=== PATIENT | female | born 1990 | race African-American/Black ===

== ENCOUNTER 2018-07-31 19:58 | Emergency (ER) | payer OTHER ==
[2018-07-31] MEDS ORDERED: ALBUTEROL SO4 2.5/IPRATROPIUM 0.5 INH SOL 3 ML VIAL.NEB. NEB ONE ×4 (20:04→22:44)
--- NOTE | 2018-07-31 20:04 | PDOC ---
Rapid Medical Evaluation Time Seen by Provider: 07/31/18 20:00 Medical Evaluation: 07/31/18 20:00 I have performed a brief in-person evaluation of this patient. The patient presents with a chief complaint of: SOB since this morning, no hx of asthma. Cough x today, congestion x 2 days. chest pain earlier, now resolved. patient reports taking multiple doses of dayquil today. denies recent travel, surgeries, OCPs/hormonal use. Pertinent physical exam findings: tach to 135, O2 94%, exp wheeze to RUL. nasal congestion. I have ordered the following: duoneb, cxr The patient will proceed to the ED for further evaluation.
[2018-07-31 20:06] VITALS: BMI 32.5
--- NOTE | 2018-07-31 20:16 | PDOC ---
History of Present Illness - General Chief Complaint: Shortness of Breath Stated Complaint: SOB Time Seen by Provider: 07/31/18 20:00 History Source: Patient Exam Limitations: No Limitations - History of Present Illness Initial Comments: 07/31/18 21:33 27 year old female with no PMH presented to ED for SOB since yesterday associated with nasal congestion, productive yellow cough, pleuritic substernal chest pain. Pt stated her symptoms are constant, progressing, no alleviating or aggravating factors. Pt took 3 doses of Dayquil today without relief of symptoms. Dayquil has 325 mg of Tylenol. Allergies: NKDA Past History - Past Medical History Allergies/Adverse Reactions: Allergies Allergy/AdvReac Type Severity Reaction Status Date / Time cat dander Allergy Mild Itching Verified 07/31/18 20:06 Home Medications: Ambulatory Orders Albuterol Sulfate Inhaler - [Ventolin HFA Inhaler -] 1 - 2 inh PO Q4H #1 inhaler 08/01/18 Albuterol Sulfate Inhaler - [Ventolin HFA Inhaler -] 2 inh PO Q4H PRN #1 inh Azithromycin [Zithromax 250mg Tablets -] 250 mg PO DAILY #4 tab 08/01/18 Azithromycin [Zithromax 250mg Tablets -] 250 mg PO UTDICT #4 tab 08/01/18 COPD: No - Suicide/Smoking/Psychosocial Hx Smoking History: Never smoked Have you smoked in the past 12 months: No Information on smoking cessation initiated: No Hx Alcohol Use: No Drug/Substance Use Hx: No Review of Systems - Review of Systems Able to Perform ROS?: Yes Comments:: 07/31/18 20:37 General: denied fever, chills, generalized weakness. HEENT: denied sore throat, rhinorrhea, ear pain. Heart:admitted to chest pain. denied palpitations, syncope, diaphoresis. Respiratory: admitted to shortness of breath, cough, sputum production. denied hemoptysis. Abdomen: denied abdominal pain, nausea, vomiting, diarrhea, constipation, blood in stool. : denied dysuria, increased urinary frequency, hematuria, urinary incontinence , flank pain. Back: denied back pain. Musculoskeletal: denied joint pain, muscle pain, joint swelling. Neurological: denied headache, dizziness, numbness, tingling, weakness. Skin: denied rash, laceration, abrasion. *Physical Exam - Vital Signs Last Vital Signs Temp Pulse Resp BP Pulse Ox 98.4 F 125 H 18 146/76 97 07/31/18 20:03 07/31/18 20:03 07/31/18 20:03 07/31/18 20:03 07/31/18 20:03 - Physical Exam Comments: 07/31/18 20:38 Constitutional: Well-nourished, Well-developed, appearing stated age. HEENT: head is normocephalic, atraumatic. EOMI. PERRLA. Neck: supple. Full ROM. Heart: tachycardic. regular rhythm. no murmurs, rubs or gallops. Lungs: right upper anterior wheezing, left posterior wheezing. no crackles. no stridor. speaking full sentences. Abdomen: soft, nontender. normal bowel sounds. no rebound, guarding, masses. Extremities: peripheral pulses intact. no lower extremity edema. Neurological: CN 2-12 grossly intact. moves all four extremities. Psych: awake, alert, oriented x3. follows commands. answers questions appropriately. ED Treatment Course - LABORATORY CBC & Chemistry Diagram: 07/31/18 20:29 07/31/18 20:29 Medical Decision Making - Medical Decision Making 07/31/18 20:38 27 year old female with no PMH presented to ED for SOB since yesterday associated with nasal congestion, productive yellow cough, pleuritic substernal chest pain. Initial Vital Signs Temp Pulse Resp BP Pulse Ox 98.4 F 125 H 18 146/76 97 07/31/18 20:03 07/31/18 20:03 07/31/18 20:03 07/31/18 20:03 07/31/18 20:03 Afebrile. Tachycardic. No tachypnea. Mild hypertension. No hypoxia on room air. EKG performed at 2002: rate 114, normal axis, normal intervals, regular rhythm, no ST changes, no right heart strain. Labs ordered:CBC, CMP Imaging ordered: CXR Medications ordered: normal saline bolus 1000 cc, duonebx3 07/31/18 21:05 CBC WBC 17.4 K/mm3 (4.0-10.0) H 07/31/18 20:29 RBC 4.14 M/mm3 (3.60-5.2) 07/31/18 20:29 Hgb 12.0 GM/dL (10.7-15.3) 07/31/18 20: Hct 38.1 % (32.4-45.2) 07/31/18 20: MCV 92.0 fl (80-96) 07/31/18 20: MCH 28.9 pg (25.7-33.7) 07/31/18 20: MCHC 31.5 g/dl (32.0-36.0) L 07/31/18 20: RDW 12.9 % (11.6-15.6) 07/31/18 20: Plt Count 276 K/MM3 (134-434) 07/31/18 20: MPV 10.5 fl (7.5-11.1) 07/31/18 20: Absolute Neuts (auto) 15.2 K/mm3 (1.5-8.0) H 07/31/18 20: Neutrophils % 87.1 % (42.8-82.8) H 07/31/18 20: Lymphocytes % 6.3 % (8-40) L 07/31/18 20: Monocytes % 4.9 % (3.8-10.2) 07/31/18 20: Eosinophils % 1.6 % (0-4.5) 07/31/18: Basophils % 0.1 % (0-2.0) 07/31/18 20: Nucleated RBC % 0 % (0-0) 07/31/18 20: Leukocytosis with left shift. No anemia. 07/31/18 21:35 CMP Sodium 141 mmol/L (136-145) 07/31/18 20: Potassium 4.0 mmol/L (3.5-5.1) 07/31/18 20: Chloride 106 mmol/L (98-107) 07/31/18 20: Carbon Dioxide 28 mmol/L (21-32) 07/31/18 20: Anion Gap 7 MMOL/L (8-16) L 07/31/18 20:29 BUN 7 mg/dL (7-18) 07/31/18 20: Creatinine 0.8 mg/dL (0.55-1.3) 07/31/18 20:29 Est GFR (CKD-EPI)AfAm 115.47 07/31/18 20:29 Est GFR (CKD-EPI)NonAf 99.63 07/31/18 20:29 Random Glucose 93 mg/dL (74-106) 07/31/18 20:29 Calcium 9.1 mg/dL (8.5-10.1) 07/31/18 20:29 Total Bilirubin 0.5 mg/dL (0.2-1) 07/31/18 20:29 AST 17 U/L (15-37) 07/31/18 20:29 ALT 16 U/L (13-61) 07/31/18 20:29 Alkaline Phosphatase 89 U/L (45-117) 07/31/18 20:29 Total Protein 8.3 g/dl (6.4-8.2) H 07/31/18 20:29 Albumin 3.7 g/dl (3.4-5.0) 07/31/18 20:29 No electrolyte abnormalities. No ROKCY. No transaminitis. Vital Signs Temperature 101 F H 07/31/18 21:32 Pulse Rate 112 H 07/31/18 21:32 Respiratory Rate 20 07/31/18 21:32 Blood Pressure 114/64 07/31/18 21:32 O2 Sat by Pulse Oximetry (%) 99 07/31/18 21:32 Pt is rectally febrile. Tachycardia improving with fluid bolus. Medications ordered: Tylenol IV CXR my read: sharp costophrenic angles. no infiltrate. no cardiomegaly. no large pneumothorax. -Pending official read 07/31/18 23:17 INR, PTT INR 1.17 (0.83-1.09) H 07/31/18 20:29 D-dimer 535 Results discussed with patient and mother, they stated they will decide on the CTA. 08/01/18 00:05 Pt and mother decided to do CTA. Serum testing negative. 08/01/18 01:31 CTA negative for PE. 6.3 subpleural nodule. left lobe of thyroid larger than right. Pt informed of result and need for follow up with PCP on nodule and thyroid. Pt and mother expressed understanding. Vital Signs Temperature 98.1 F 08/01/18 01:45 Pulse Rate 100 H 08/01/18 02:03 Respiratory Rate 20 08/01/18 01:45 Blood Pressure 123/73 08/01/18 01:45 O2 Sat by Pulse Oximetry (%) 98 08/01/18 01:45 Febrile. Tachycardia improved. No hypotension. No hypoxia on room air. Pt discharged. 08/01/18 20:44 Follow up: Official CXR report: There are no prior studies for comparison. 2 views of the chest reveal clear lungs, normal mediastinum and sharp angles. The bones and soft tissues are intact. Impression: No acute chest pathology. This symptoms persist, then further imaging with CT may be of help. *DC/Admit/Observation/Transfer Diagnosis at time of Disposition: Shortness of breath, Viral syndrome, Leukocytosis - Discharge Dispostion Condition at time of disposition: Improved Decision to Admit order: No - Prescriptions Prescriptions: Albuterol Sulfate Inhaler - [Ventolin HFA Inhaler -] 2 inh PO Q4H PRN #1 inh PRN Reason: Cough Albuterol Sulfate Inhaler - [Ventolin HFA Inhaler -] 1 - 2 inh PO Q4H #1 inhaler Azithromycin [Zithromax 250mg Tablets -] 250 mg PO DAILY #4 tab Azithromycin [Zithromax 250mg Tablets -] 250 mg PO UTDICT #4 tab - Referrals - Patient Instructions Printed Discharge Instructions: DI for Viral Syndrome Additional Instructions: Your lab work showed an elevated white blood cell count, an indicator of infection. Your chest X-ray was normal. Your Cat-Scan was negative for a blood clot. You likely have a viral infection. Take 1000 mg Tylenol over the counter every 8 hours as needed for pain/fever. Take the azithromycin as prescribed Use the inhaler every 4 hours as needed for shortness of breath Drink lots of clear fluids, like gatorade/pedialyte, to stay hydrated. Follow up with your primary care doctor within 4 days. Your care is not complete until you follow up. Return to the Emergency Department for chest pain, shortness of breath, palpitations, fever>104F with Tylenol use, fever>5 days or any other new, worsening or concerning symptoms. - Post Discharge Activity Forms/Work/School Notes: Back to Work
[2018-07-31] MEDS ORDERED: SODIUM CHLORIDE 1,000 ML IV STA (20:17)
[2018-07-31 20:43] LABS: BASO % 0.1 % (0-2.0); EOS % 1.6 % (0-4.5); HEMATOCRIT 38.1 % (32.4-45.2); LYMPH % 6.3 % (8-40); MCH 28.9 pg (25.7-33.7); MCHC 31.5 g/dl (32.0-36.0); MEAN PLT VOLUME 10.5 fl (7.5-11.1); MONO % 4.9 % (3.8-10.2); NEUT % 87.1 % (42.8-82.8); PLATELET COUNT 276 K/MM3 (134-434); RBC 4.14 M/mm3 (3.60-5.2); RDW 12.9 % (11.6-15.6); WHITE BLOOD COUNT 17.4 K/mm3 (4.0-10.0)
[2018-07-31 21:21] LABS: ALBUMIN 3.7 g/dl (3.4-5.0); BILIRUBIN,TOTAL 0.5 mg/dL (0.2-1); CALCIUM 9.1 mg/dL (8.5-10.1); CREATININE 0.8 mg/dL (0.55-1.3); TOT PROT 8.3 g/dl (6.4-8.2)
[2018-07-31] MEDS ORDERED: ACETAMINOPHEN 1000 MG/100 ML VIAL (NON FORMULARY) IVPB ONE (21:38)
[2018-07-31] MEDS ORDERED: ACETAMINOPHEN INJECTION 100 ML IVPB ONE (21:43)
[2018-07-31 22:03] LABS: INR 1.17 (0.83-1.09); PROTHROMBIN TIME (PATIENT) 13.8 SEC (9.7-13.0)
[2018-07-31 22:05] LABS: ACTIVATED PTT 31.4 SECONDS (25.2-36.5)
--- NOTE | 2018-07-31 23:13 | PDOC ---
Documentation entered by Indra Becker SCRIBE, acting as scribe for Rob Avila MD. Rob Avila MD: This documentation has been prepared by the Rosita baez Nirvannie, SCRIBE, under my direction and personally reviewed by me in its entirety. I confirm that the documentation accurately reflects all work, treatment, procedures, and medical decision making performed by me. Attending Attestation - Resident Resident Name: ValDemetria - ED Attending Attestation I have performed the following: I have examined & evaluated the patient, The case was reviewed & discussed with the resident, I agree w/resident's findings & plan - HPI HPI: 07/31/18 21:49 The patient is a 27 year old female, with no significant past medical history, who presents to the emergency department with, 2 days of nasal congestion, cough , fever (Tmax 101F), and pleuritic pressure-like chest pain. Patient notes taking DayQuil, without relief and has multiple sick contacts. She also notes a recently getting a cat (pt is allergic to cats). Denies exogenous hormone use, no control, denies recent travel or immobility. She denies recent nausea, vomit, diarrhea or constipation. She denies recent dysuria, frequency, urgency or hematuria. Allergies: Cat dander - Physicial Exam PE: 07/31/18 21:49 GENERAL: Awake, alert, and fully oriented, in no acute distress HEAD: No signs of trauma EYES: PERRLA, EOMI, sclera anicteric, conjunctiva clear ENT: Auricles normal inspection, hearing grossly normal, nares patent, oropharynx clear without exudates. Moist mucosa NECK: Normal ROM, supple, no lymphadenopathy, JVD, or masses LUNGS: +Diffuse expiratory wheezing L>R. No crackles HEART: Tachycardic but regular, rate 110, normal S1 and S2, no murmurs, rubs or gallops ABDOMEN: Soft, nontender, normoactive bowel sounds. No guarding, no rebound. No masses EXTREMITIES: Normal range of motion, no edema. No cords, erythema, or tenderness BACK: No midline spinal tenderness in cervical/thoracic/lumbar region NEUROLOGICAL: Normal speech, cranial nerves intact, equal strength and sensation b/l SKIN: Warm, Dry, normal turgor, no rashes or lesions noted. - Medical Decision Making 07/31/18 23:11 27yo F presents to the ED with pleuritic CP, fever, chills, congestion Pt initially tachycardic with no fever Low risk for PE, so dimer was sent Dimer is mildly positive, thus will obtain CTA to r/o PE If PE neg, likely bronchitis in setting of viral syndrome Plan to treat with nebs, z-pack in ED, reassess 08/01/18 01:38 CTA negative 08/01/18 01:41 EXAM: CHEST CTA HISTORY: Rule out pulmonary embolus COMPARISON: None. FINDINGS: No definite pulmonary embolus. However, the pulmonary arteries are under opacified. Contrast density in the pulmonary arteries is 180 Hounsfield units or less. This is well short of minimal acceptable density of low 200s. There is also motion artifact degrading the images. Negative for thoracic aortic aneurysm or dissection. No pulmonary infiltrates (motion artifact is a false appearance of infiltrates in some areas). There is a 6.3 mm subpleural nodule right middle lobe. Recommend follow-up Enlarged thyroid left greater than right lobe. Shotty axillary lymph nodes. Impression: No definite pulmonary embolus. Diagnostic sensitivity is quite limited. 6.3 subpleural nodule right middle lobe. Enlarged thyroid left lobe greater than right One or more of the following dose reduction techniques were used: automated exposure control, adjustment of the mA and/or kV according to patient size, use of iterative reconstructive technique. Read by: Stanley Garza MD No PE, +nodule which was discussed with pt. She will f/u with her PMD. Report provided Pt also has asymmetric thyroid on CT scan which she states she also knows about and will f/u for Pt feeling better, no longer wheezing HR 100 Will give z-pack and albuterol inhaler Pt to f/u with her PMD within 2-3 days I discussed the physical exam findings, ancillary test results and final diagnoses with the patient. I answered all of the patient's questions. The patient was satisfied with the care received and felt comfortable with the discharge plan and treatment plan. The patient will call their primary care physician within 24 hours to arrange follow-up and will return to the Emergency Department with any new, persistent or worsening symptoms.
[2018-08-01] MEDS ORDERED: AZITHROMYCIN 250 MG TABLET PO ONE (01:37)
[2018-08-01 01:46] VITALS: BP 123/73; TEMP 98.1
[2018-08-01] MEDS ORDERED: AZITHROMYCIN 250 MG TABLET ONE (01:50)
[2018-08-01 02:04] VITALS: PULSE 100
--- NOTE | 2018-08-01 15:33 | EKG ---
Test Reason : Blood Pressure : / mmHG Vent. Rate : 114 BPM Atrial Rate : 114 BPM P-R Int : 146 ms QRS Dur : 088 ms QT Int : 322 ms P-R-T Axes : 082 070 054 degrees QTc Int : 443 ms SINUS TACHYCARDIA POSSIBLE LEFT ATRIAL ENLARGEMENT BORDERLINE ECG NO PREVIOUS ECGS AVAILABLE Confirmed by MD David, Yoni ([id number]) on 08/01/2018 3:32:53 PM Referred By: Confirmed By:Yoni Hernandez MD
== END 2018-08-01 02:03 | disposition home or self-care (01) ==
LOC: JER 19:58
PROC: 3E0F7GC Introduction of Other Therapeutic Substance into Respiratory Tract, Via Natural or Artificial Opening (ICD-10-PCS; principal; 2018-07-31)
PROC: 3E0F7GC Introduction of Other Therapeutic Substance into Respiratory Tract, Via Natural or Artificial Opening (ICD-10-PCS; 2018-07-31)
PROC: 3E0337Z Introduction of Electrolytic and Water Balance Substance into Peripheral Vein, Percutaneous Approach (ICD-10-PCS; 2018-07-31)
PROC: 3E033NZ Introduction of Analgesics, Hypnotics, Sedatives into Peripheral Vein, Percutaneous Approach (ICD-10-PCS; 2018-07-31)
DX: B34.9 Viral infection, unspecified (principal); D72.829 Elevated white blood cell count, unspecified
CPT/HCPCS: 36415; 71046-TC-FY; 71275-TC; 80053; 84703; 85025; 85379; 85610; 85730; 93005; 93010; 99283-25; J0131; J7030

== ENCOUNTER 2018-12-08 01:46 | Emergency (ER) | payer OTHER ==
--- NOTE | 2018-12-08 03:33 | PDOC ---
History of Present Illness - General Chief Complaint: Vaginal Bleeding Stated Complaint: VAGINAL BLEEDING Time Seen by Provider: 12/08/18 03:29 Past History - Past Medical History Allergies/Adverse Reactions: Allergies Allergy/AdvReac Type Severity Reaction Status Date / Time cat dander Allergy Mild Itching Verified 12/08/18 02:07 Home Medications: Ambulatory Orders Albuterol Sulfate Inhaler - [Ventolin HFA Inhaler -] 1 - 2 inh PO Q4H #1 inhaler 08/01/18 COPD: No - Immunization History Immunization Up to Date: Yes - Psycho Social/Smoking Cessation Hx Smoking History: Never smoked Have you smoked in the past 12 months: No Hx Alcohol Use: No Drug/Substance Use Hx: No *Physical Exam - Vital Signs Last Vital Signs Temp Pulse Resp BP Pulse Ox 99.2 F 109 H 20 130/71 100 12/08/18 02:00 12/08/18 02:00 12/08/18 02:00 12/08/18 02:00 12/08/18 02:00 ED Treatment Course - LABORATORY CBC & Chemistry Diagram: 12/08/18 05:30 12/08/18 05:30 Medical Decision Making - Medical Decision Making Not in room 5 12/08/18 03:32 Patient eventually returned to room five. HPI: 28 yo A2 with PMH of ovarian cyst presenting with heavier/longer than normal menstrual period. Patient states her periods usually last three days and now it is day seven. The period has not lightened and she continues to use about 7 tampons per day rather than the usual 5. She reports abdominal "cramping " which she associates with menstruation. No history of fibroids. Does not believe she is , but "doesn't hurt to check." No vaginal discharge or urinary symptoms. Denies fevers, chills, chest pain, shortness of breath, or weakness. PCP: Dr. Dorinda Ellis patient financial services specialist: Malcolm Maciel ROS: Constitutional: no fever, no chills HEENT: no throat pain, no dysphagia Cardiovascular: no chest pain, no palpitations Respiratory: no cough, no shortness of breath Gastrointestinal: +abdominal pain, no nausea Genitourinary: no dysuria, no hematuria Musculoskeletal: no myalgia, no arthralgia Skin: no rash, no itching Neurologic: no headache, no weakness PE: General: Awake, alert, and fully oriented, in no acute distress Head: No signs of trauma Eyes: EOMI, sclera anicteric ENT: Moist mucus membranes Neck: Normal ROM, supple Lungs: Lungs clear, Normal breath sounds Cardio: Regular rhythm, S1 and S2 present Abdomen: Soft, nontender. No guarding, no rebound, no masses Extremities: Normal range of motion, Distal pulses present SKIN: Warm, Dry, normal turgor Neurologic: Cranial nerves II through XII grossly intact. Normal speech Pelvic: External genitalia without erythema, exudate or discharge. Vaginal vault is with blood. Cervix is of normal color without lesion. There is no bleeding noted. Uterus is noted to be of appropriate size and nontender. No cervical motion tenderness is seen. No masses are palpated. The adnexa are without masses or tenderness. ED Course/MDM: DDX including but not limited to normal variant of menstruation, fibroids, ovarian cyst, Labs Tylenol 12/08/18 05:33 Phong asked to stay in her room while we are caring for her. She said she had to leave the department to "get somebody." 12/08/18 05:47 CBC WBC 10.7 K/mm3 (4.0-10.0) H 12/08/18 05:30 RBC 3.97 M/mm3 (3.60-5.2) 12/08/18 05:30 Hgb 11.7 GM/dL (10.7-15.3) 12/08/18 05:30 Hct 35.6 % (32.4-45.2) 12/08/18 05:30 MCV 89.6 fl (80-96) 12/08/18 05:30 MCH 29.3 pg (25.7-33.7) 12/08/18 05:30 MCHC 32.7 g/dl (32.0-36.0) 12/08/18 05:30 RDW 13.8 % (11.6-15.6) 12/08/18 05:30 Plt Count 271 K/MM3 (134-434) 12/08/18 05:30 MPV 10.2 fl (7.5-11.1) 12/08/18 05:30 Absolute Neuts (auto) 8.4 K/mm3 (1.5-8.0) H 12/08/18 05:30 Neutrophils % 78.3 % (42.8-82.8) 12/08/18 05:30 Lymphocytes % 16.0 % (8-40) D 12/08/18 05:30 Monocytes % 5.0 % (3.8-10.2) 12/08/18 05:30 Eosinophils % 0.2 % (0-4.5) D 12/08/18 05:30 Basophils % 0.5 % (0-2.0) D 12/08/18 05:30 Nucleated RBC % 0 % (0-0) 12/08/18 05:30 Mild leukocytosis CMP Sodium 138 mmol/L (136-145) 12/08/18 05:30 Potassium 3.6 mmol/L (3.5-5.1) 12/08/18 05:30 Chloride 104 mmol/L (98-107) 12/08/18 05:30 Carbon Dioxide 28 mmol/L (21-32) 12/08/18 05:30 Anion Gap 6 MMOL/L (8-16) L 12/08/18 05:30 BUN 11.8 mg/dL (7-18) 12/08/18 05:30 Creatinine 0.7 mg/dL (0.55-1.3) 12/08/18 05:30 Est GFR (CKD-EPI)AfAm 134.75 12/08/18 05:30 Est GFR (CKD-EPI)NonAf 116.26 12/08/18 05:30 Random Glucose 101 mg/dL (74-106) 12/08/18 05:30 Calcium 9.2 mg/dL (8.5-10.1) 12/08/18 05:30 Total Bilirubin 0.5 mg/dL (0.2-1) 12/08/18 05:30 AST 10 U/L (15-37) L 12/08/18 05:30 ALT 14 U/L (13-61) 12/08/18 05:30 Alkaline Phosphatase 67 U/L (45-117) 12/08/18 05:30 Total Protein 8.3 g/dl (6.4-8.2) H 12/08/18 05:30 Albumin 4.0 g/dl (3.4-5.0) 12/08/18 05:30 Beta HCG, Quant 138.1 mIU/ml 12/08/18 05:30 Electrolytes unremarkable Cr normal B-hcg 138 Patient signed out to Dr. Hays and day team Pending TVUS Pending Rh status 12/08/18 07:03 Discharge - Discharge Information Problems reviewed: Yes Clinical Impression/Diagnosis: Vaginal bleeding during Condition: Good Disposition: HOME - Follow up/Referral - Patient Discharge Instructions Patient Printed Discharge Instructions: Human Chorionic Gonadotropin Additional Instructions: You were seen with vaginal bleeding. Your test was found to be positive, however, your quantitative beta-hcG (a measure of how far along a is) was quite low. You may be having a very early , or you may have had a miscarriage. It is very important to follow up your beta-hcG level in two days. You may go to either your outpatient OBGYN clinic, or you may return to the ED to have your level checked. Please return to the ED if you have worsening vaginal bleeding or develop shortness of breath. Follow up with your primary care doctor and your OBGYN in the next few days. - Post Discharge Activity
--- NOTE | 2018-12-08 03:45 | PDOC ---
Attending Attestation - Resident Resident Name: Mei Polanco - ED Attending Attestation I have performed the following: I have examined & evaluated the patient, The case was reviewed & discussed with the resident, I agree w/resident's findings & plan
[2018-12-08] MEDS ORDERED: ACETAMINOPHEN 325 MG TABLET (FP) PO ONE (05:19)
[2018-12-08] MEDS ORDERED: ACETAMINOPHEN 325 MG TABLET (FP) ONE (05:35)
[2018-12-08 05:46] LABS: BASO % 0.5 % (0-2.0); EOS % 0.2 % (0-4.5); HEMATOCRIT 35.6 % (32.4-45.2); HEMOGLOBIN 11.7 GM/dL (10.7-15.3); MCH 29.3 pg (25.7-33.7); MCHC 32.7 g/dl (32.0-36.0); MEAN CELL VOLUME 89.6 fl (80-96); MEAN PLT VOLUME 10.2 fl (7.5-11.1); NEUT % 78.3 % (42.8-82.8); PLATELET COUNT 271 K/MM3 (134-434); RBC 3.97 M/mm3 (3.60-5.2); RDW 13.8 % (11.6-15.6); WHITE BLOOD COUNT 10.7 K/mm3 (4.0-10.0)
[2018-12-08 06:12] LABS: BILIRUBIN,TOTAL 0.5 mg/dL (0.2-1); BLOOD UREA NITROGEN 11.8 mg/dL (7-18); CALCIUM 9.2 mg/dL (8.5-10.1); CREATININE 0.7 mg/dL (0.55-1.3); POTASSIUM 3.6 mmol/L (3.5-5.1); TOT PROT 8.3 g/dl (6.4-8.2)
--- NOTE | 2018-12-08 06:59 | PDOC ---
Attending Attestation - Resident Resident Name: Sandrine Polancoth - ED Attending Attestation I have performed the following: The case was reviewed & discussed with the resident, I agree w/resident's findings & plan - HPI HPI: 12/08/18 19:46 see resident hpi - Physicial Exam PE: 12/08/18 19:46 see resident exam - Medical Decision Making 12/08/18 19:47 28 yo female with vaginal bleeding multiple attempts made to evaluate pt, when asked to return to room for exam she walked away, she was eventually examined by resident positive prior to shift change, case signed out pending US to day shift
--- NOTE | 2018-12-08 07:39 | PDOC ---
*Physical Exam - Vital Signs Last Vital Signs Temp Pulse Resp BP Pulse Ox 99.2 F 109 H 20 130/71 100 12/08/18 02:00 12/08/18 02:00 12/08/18 02:00 12/08/18 02:00 12/08/18 02:00 ED Treatment Course - LABORATORY CBC & Chemistry Diagram: 12/08/18 05:30 12/08/18 05:30 - ADDITIONAL ORDERS Additional order review: Laboratory Results 12/08/18 12/08/18 05:57 05:30 Sodium 138 Potassium 3.6 Chloride 104 Carbon Dioxide 28 Anion Gap 6 L BUN 11.8 Creatinine 0.7 Est GFR (CKD-EPI)AfAm 134.75 Est GFR (CKD-EPI)NonAf 116.26 Random Glucose 101 Calcium 9.2 Total Bilirubin 0.5 AST 10 L ALT 14 Alkaline Phosphatase 67 Total Protein 8.3 H Albumin 4.0 Beta HCG, Quant 138.1 Urine HCG, Qual Positive 12/08/18 05:30 RBC 3.97 MCV 89.6 MCHC 32.7 RDW 13.8 MPV 10.2 Neutrophils % 78.3 Lymphocytes % 16.0 D Monocytes % 5.0 Eosinophils % 0.2 D Basophils % 0.5 D - Medications Given in the ED: ED Medications Discontinued Medications Generic Name Dose Route Start Last Admin Trade Name Rojelio PRN Reason Stop Dose Admin Acetaminophen 975 mg 12/08/18 05:19 12/08/18 05:36 Tylenol - PO 12/08/18 05:20 975 mg ONCE ONE Administration Medical Decision Making - Medical Decision Making 12/08/18 07:[address] Polanco. Will f/u T+S, TVUS results. 12/08/18 08:01 Patient blood type O positive, will not need RhoGam. 12/08/18 09:52 TVUS negative for IUP, unconcerning. Discharge - Discharge Information Problems reviewed: Yes Clinical Impression/Diagnosis: Vaginal bleeding Condition: Good Disposition: HOME - Admission No - Follow up/Referral - Patient Discharge Instructions Patient Printed Discharge Instructions: Human Chorionic Gonadotropin Additional Instructions: You were seen with vaginal bleeding. Your test was found to be positive, however, your quantitative beta-hcG (a measure of how far along a is) was quite low. You may be having a very early , or you may have had a miscarriage. It is very important to follow up your beta-hcG level in two days. You may go to either your outpatient OBGYN clinic, or you may return to the ED to have your level checked. Please return to the ED if you have worsening vaginal bleeding or develop shortness of breath. Follow up with your primary care doctor and your OBGYN in the next few days. - Post Discharge Activity
[2018-12-08 07:44] VITALS: BP 130/71; PULSE 109; TEMP 99.2; BMI 26.6
[2018-12-08 10:11] LABS: URINE APPEARANCE CLEAR; URINE BILIRUBIN NEGATIVE (NEGATIVE); URINE COLOR YELLOW; URINE GLUCOSE (UA) NEGATIVE (NEGATIVE); URINE KETONE TRACE (NEGATIVE); URINE LEUK ESTERASE NEGATIVE (NEGATIVE); URINE NITRITE NEGATIVE (NEGATIVE); URINE PROTEIN TRACE (NEGATIVE)
[2018-12-08 10:12] LABS: EPI CELLS 12.8 /HPF (0-5/HPF); HYALINE CASTS 35 /lpf (0-8); URINE BACTERIA 129.7 /hpf (NEGATIVE); URINE RBC 1 /hpf (0-4)
== END 2018-12-08 10:00 | disposition home or self-care (01) ==
LOC: JER 01:46
DX: O26.891 Other specified pregnancy related conditions, first trimester (principal); O20.8 Other hemorrhage in early pregnancy; Z3A.01 Less than 8 weeks gestation of pregnancy
CPT/HCPCS: 36415; 76817-TC; 80053; 81003; 84702; 84703; 85025; 86850; 86900; 86901; 99282-25